=== PATIENT | female | born 1960 | race Caucasian/White ===

== ENCOUNTER 2017-01-12 15:33 | Emergency (ER) | payer BC ==
[2017-01-12 15:46] VITALS: BP 157/100
[2017-01-12] MEDS ORDERED: Glucagon,Human Recombinant 1 MG Vial IVPUSH ONE (16:14)
[2017-01-12] MEDS ORDERED: Sodium Chloride 0.9% 10 ML Syringe FLUSH PRN (16:14)
[2017-01-12] MEDS ORDERED: LORazepam 2 MG/ML MDV IVPUSH ONE (16:14)
--- NOTE | 2017-01-12 18:19 | EDM.PDOC ---
ED HPI GENERAL MEDICAL PROBLEM - General Chief Complaint: ENT Problem Stated Complaint: UNABLE TO SWALLOW Time Seen by Provider: 01/12/17 16:06 Source of Information: Reports: Patient, RN Notes Reviewed - History of Present Illness INITIAL COMMENTS - FREE TEXT/NARRATIVE: 56-year-old female comes in with sensation of food bolus stuck in her esophagus. She has had difficulty of this nature off and on for about 5 years. She states she has required "stretching" or dilatation of her esophagus on numerous occasions in the past. Venous and which was some sausage at around noon today when she felt like food became impacted. Initially she was not able to swallow water. She has been swallowing secretions. at the time of my initial exam she did not think that she could drink water. Mild discomfort upper mid chest worse with swallowing. she's not been coughing and no shortness of breath - Related Data Allergies Allergy/AdvReac Type Severity Reaction Status Date / Time No Known Allergies Allergy Verified 01/12/17 15:45 Home Meds: Home Meds Esomeprazole Magnesium [Nexium] 40 mg PO DAILY 06/14/14 [History] Levothyroxine Sodium [Synthroid] 112 mcg PO DAILY 06/14/14 [History] Crestor. 0.5 tab PO DAILY 01/12/17 [History] Past Medical History Gastrointestinal History: Reports: GERD, Other (See Below) Endocrine/Metabolic History: Reports: Hypothyroidism - Past Surgical History Other HEENT Surgeries/Procedures: Esophagus stricture GI Surgical History: Reports: Esophageal Dilatation Social & Family History - Tobacco Use Smoking Status *Q: Never Smoker Second Hand Smoke Exposure: No - Caffeine Use Caffeine Use: Reports: Coffee - Alcohol Use Days Per Week of Alcohol Use: 0 Number of Drinks Per Day: 0 Total Drinks Per Week: 0 - Recreational Drug Use Recreational Drug Use: No Drug Use in Last 12 Months: No - Living Situation & Occupation Living situation: Reports: Occupation: Employed ED ROS ENT - Review of Systems Review Of Systems: See Below Constitutional: Denies: Fever, Chills, Diaphoresis HEENT: Denies: Throat Pain Respiratory: Reports: Other (she does have some discomfort upper mid chest primarily with swallowing). Denies: Shortness of Breath, Pleuritic Chest Pain Cardiovascular: Reports: Chest Pain (upper mid chest pain with swallowing). Denies: Lightheadedness GI/Abdominal: Reports: Vomiting (it sounds like she did vomit up some food material shortly after this happened). Denies: Abdominal Pain Musculoskeletal: Denies: Neck Pain, Shoulder Pain, Back Pain Skin: Reports: No Symptoms Neurological: Denies: Dizziness, Numbness, Tingling, Trouble Speaking, Weakness ED EXAM, ENT - Physical Exam Exam: See Below General Appearance: Alert, No Apparent Distress Eye Exam: Bilateral Eye: PERRL Mouth/Throat: Normal Inspection Head: Atraumatic. No: Facial Swelling Neck: Supple, Non-Tender, Full Range of Motion. No: Lymphadenopathy (L), Lymphadenopathy (R) Respiratory/Chest: No Respiratory Distress, Lungs Clear, Normal Breath Sounds, No Accessory Muscle Use Cardiovascular: Regular Rate, Rhythm GI/Abdominal: Soft, Non-Tender Extremities: Normal Inspection, Normal Range of Motion Skin: Warm, Dry, Normal Color Course - Vital Signs Last Recorded V/S: Last Vital Signs Temp 97.6 F 01/12/17 15:42 Pulse 67 01/12/17 15:42 Resp 18 01/12/17 15:42 BP 157/100 H 01/12/17 15:42 Pulse Ox 98 01/12/17 15:42 - Orders/Labs/Meds Orders: Active Orders 24 hr Category Date Time Status Peripheral IV Care [RC] . DIRECTED Care 01/12/17 16:14 Active Peripheral IV Insertion Adult [OM.PC] Stat Oth 01/12/17 16:14 Ordered Labs: Laboratory Tests 01/12/17 01/12/17 Range/Units 16:25 16:25 WBC 7.17 (3.98-10.04) K/mm3 RBC 4.23 (3.98-5.22) M/mm3 Hgb 12.7 (11.2-15.7) gm/L Hct 38.9 (34.1-44.9) % MCV 92.0 (79.4-94.8) fl MCH 30.0 (25.6-32.2) pg MCHC 32.6 (32.2-35.5) g/dl RDW Std Deviation 44.5 (36.4-46.3) fL Plt Count 214 (182-369) K/mm3 MPV 9.7 (9.4-12.3) fl Neut % (Auto) 77.3 H (34.0-71.1) % Lymph % (Auto) 14.1 L (19.3-51.7) % [place] % (Auto) 7.5 (4.7-12.5) % Eos % (Auto) 0.8 (0.7-5.8) Baso % (Auto) 0.0 L (0.1-1.2) % Neut # (Auto) 5.54 (1.56-6.13) K/mm3 Lymph # (Auto) 1.01 L (1.18-3.74) K/mm3 [place] # (Auto) 0.54 H (0.24-0.36) K/mm3 Eos # (Auto) 0.06 (0.04-0.36) K/mm3 Baso # (Auto) 0.00 L (0.01-0.08) K/mm3 Sodium 134 L (136-145) mEq/L Potassium 3.7 (3.5-5.1) mEq/L Chloride 100 (98-107) mEq/L Carbon Dioxide 26 (21-32) mEq/L Anion Gap 11.7 (5-15) BUN 8 (7-18) mg/dL Creatinine 0.8 (0.55-1.02) mg/dL Est Cr Clr Drug Dosing 66.19 mL/min Estimated GFR (MDRD) > 60 (>60) mL/min BUN/Creatinine Ratio 10.0 L (14-18) Glucose 111 H (74-106) mg/dL Calcium 9.7 (8.5-10.1) mg/dL Total Bilirubin 0.4 (0.2-1.0) mg/dL AST 24 (15-37) U/L ALT 27 (14-59) U/L Alkaline Phosphatase 57 (46-116) U/L Total Protein 7.8 (6.4-8.2) g/dl Albumin 3.8 (3.4-5.0) g/dl Globulin 4.0 gm/dL Albumin/Globulin Ratio 1.0 (1-2) Meds: Medications Discontinued Medications Generic Name Dose Route Start Last Admin Trade Name Freq PRN Reason Stop Dose Admin Glucagon 1 mg 01/12/17 16:14 01/12/17 16:28 Glucagen IVPUSH 01/12/17 16:15 1 mg ONETIME ONE Administration Lorazepam 0.5 mg 01/12/17 16:14 01/12/17 16:29 Ativan IVPUSH 01/12/17 16:15 0.5 mg ONETIME ONE Administration Sodium Chloride 10 ml 01/12/17 16:14 01/12/17 16:33 Saline Flush FLUSH 10 ml ASDIRECTED PRN Administration Keep Vein Open - Re-Assessments/Exams Free Text/Narrative Re-Assessment/Exam: 01/12/17 20:30 patient was treated initially with glucagon 1 mg IV, Ativan 0.5 mg IV. After a period of time she was given water to drink and was able to swallow the water down with mild discomfort upper mid chest with swallowing. However the water did go down fairly easily and at no time did she show any indication for wanting or needing to vomit. this was followed up with some Coke. She did not have any major difficulty with that. I have discussed with her that her current discomfort swallowing is not unusual after having had food bolus impaction in the esophagus. We should give this 24 hours or so to see if her discomfort goes away. If Not she can then follow-up with her regular provider and have her esophagus "dilated" electively as she is had done in the past. Discharge instructions as documented Departure - Departure Time of Disposition: 18:15 Disposition: Home, Self-Care 01 Condition: Fair Clinical Impression: Food impaction of esophagus Qualifiers: Encounter type: initial encounter Qualified Code(s): T18.128A - Food in esophagus causing other injury, initial encounter - Discharge Information Referrals: Glenna Jefferson, [employer]CH[employer]ICAL OFFICER [Primary Care Provider] - Forms: ED Department Discharge Additional Instructions: clear liquids only this evening, then clear liquids and soft diet tomorrow as tolerated, If and when you do try more solid food be sure to cut up and chew your food very carefully, call Dr. Morris office tomorrow if still having difficulty swallowing, Plan to see Dr Laura as soon as possible after you get back home from [place], return to ED as needed if complete obstruction were to occur at any time - My Orders Last 24 Hours: My Active Orders 01/12/17 16:14 Peripheral IV Care [RC] . DIRECTED Peripheral IV Insertion Adult [OM.PC] Stat - Assessment/Plan Last 24 Hours: My Active Orders 01/12/17 16:14 Peripheral IV Care [RC] . DIRECTED Peripheral IV Insertion Adult [OM.PC] Stat
== END 2017-01-12 18:38 | disposition home or self-care (01) ==
LOC: JD.ED 15:33
DX: T18.128A Food in esophagus causing other injury, initial encounter (principal); K21.9 Gastro-esophageal reflux disease without esophagitis; E03.9 Hypothyroidism, unspecified; Z79.899 Other long term (current) drug therapy; Z98.890 Other specified postprocedural states; X58.XXXA Exposure to other specified factors, initial encounter
CPT/HCPCS: 36415; 80053; 85025; 96374; 96375; 99284; J1610; J2060; J7050

== ENCOUNTER 2017-03-03 12:33 | Emergency (ER) | payer BC | END 2017-03-03 12:40 | disposition left against medical advice (07) | LOC: JD.ED 12:33 | DX: Z53.21 Procedure and treatment not carried out due to patient leaving prior to being seen by health care provider (principal) ==

== ENCOUNTER 2018-04-13 13:50 | Emergency (ER) | payer BC ==
[2018-04-13 14:41] VITALS: BP 125/68
--- NOTE | 2018-04-13 15:25 | EDM.PDOC ---
ED HPI GENERAL MEDICAL PROBLEM - General Chief Complaint: Respiratory Problem Stated Complaint: DIFFICULTY SWALLOWING Time Seen by Provider: 04/13/18 15:08 Source of Information: Reports: Patient, RN Notes Reviewed History Limitations: Reports: No Limitations - History of Present Illness INITIAL COMMENTS - FREE TEXT/NARRATIVE: Patient is a 58 year old female who presents to the ED for the evaluation of difficulty swallowing any type of food. This has been progressing for the last 3 days. She has been able to get food down, but sometimes it takes a while and she is having to vomit up some of the food to get it out of her esophagus. She does not have a food bolus stuck in her throat today. She has had a history of this for around 5 years now with resultant dilatiation of her esophagus by Dr. Laura. She is not in any respiratory distress right now. She further denies any fever/chills, nausea/vomiting/diarrhea, or abdominal pain. Her normal primary care provider is Shell Jefferson. She does have a history of GERD and does take Nexium daily. She does note that she tried to get in with Dr. Laura for management, but was told that he is out of the office until Tuesday, and she is worried that food may become stuck and she will have more difficulty this weekend. - Related Data Allergies Allergy/AdvReac Type Severity Reaction Status Date / Time No Known Allergies Allergy Verified 04/13/18 14:41 Home Meds: Home Meds Esomeprazole Magnesium [Nexium] 40 mg PO DAILY 06/14/14 [History] Levothyroxine Sodium [Synthroid] 112 mcg PO DAILY 06/14/14 [History] Crestor. 0 tab PO ASDIRECTED 01/12/17 [History] Lisinopril [Zestril] 0 mg PO DAILY 04/13/18 [History] Past Medical History Gastrointestinal History: Reports: GERD, Other (See Below) Endocrine/Metabolic History: Reports: Hypothyroidism - Past Surgical History Other HEENT Surgeries/Procedures: Esophagus stricture GI Surgical History: Reports: Esophageal Dilatation Social & Family History - Caffeine Use Caffeine Use: Reports: Coffee - Living Situation & Occupation Living situation: Reports: Occupation: Employed ED ROS GENERAL - Review of Systems Review Of Systems: See Below Constitutional: Reports: No Symptoms HEENT: Reports: No Symptoms Respiratory: Reports: No Symptoms Cardiovascular: Reports: No Symptoms Endocrine: Reports: No Symptoms GI/Abdominal: Reports: Difficulty Swallowing. Denies: Diarrhea, Nausea, Vomiting : Reports: No Symptoms Musculoskeletal: Reports: No Symptoms Skin: Reports: No Symptoms Neurological: Reports: No Symptoms Psychiatric: Reports: No Symptoms Hematologic/Lymphatic: Reports: No Symptoms Immunologic: Reports: No Symptoms ED EXAM, GENERAL - Physical Exam Exam: See Below Exam Limited By: No Limitations General Appearance: Alert, WD/WN, No Apparent Distress Eye Exam: Bilateral Eye: Normal Inspection Ears: Normal External Exam Nose: Normal Inspection Throat/Mouth: Normal Inspection, Normal Oropharynx, No Airway Compromise Head: Atraumatic, Normocephalic Neck: Normal Inspection, Supple, Non-Tender, Full Range of Motion Respiratory/Chest: No Respiratory Distress, Lungs Clear, Normal Breath Sounds, No Accessory Muscle Use, Chest Non-Tender Cardiovascular: Normal Peripheral Pulses, Regular Rate, Rhythm, No Murmur GI/Abdominal: Normal Bowel Sounds, Soft, Non-Tender, No Distention, No Mass Extremities: Normal Inspection, Normal Range of Motion, Normal Capillary Refill Neurological: Alert, Oriented, Normal Cognition, No Motor/Sensory Deficits Psychiatric: Normal Affect, Normal Mood Skin Exam: Warm, Dry, Intact, Normal Color, No Rash Lymphatic: No Adenopathy Course - Vital Signs Last Recorded V/S: Last Vital Signs Temp 97.9 F 04/13/18 14:38 Pulse 67 04/13/18 14:38 Resp 18 04/13/18 14:38 BP 125/68 04/13/18 14:38 Pulse Ox 98 04/13/18 14:38 - Re-Assessments/Exams Free Text/Narrative Re-Assessment/Exam: 04/13/18 15:38 Pt presents to the ED for the evaluation of difficulty swallowing. Due to the nature of her symptoms and the progression over the last 3 days, Dr. Palomares was called for possible dilatation. It was her recommendation that the patient follow strict clear liquid diet tonight and call Dr. Laura's office in the morning as he is supposed to be taking call at 11AM. The patient understands this and will comply with recommendations. Departure - Departure Time of Disposition: 15:41 Disposition: Home, Self-Care 01 Condition: Fair Clinical Impression: Difficulty swallowing Qualifiers: Dysphagia type: unspecified Qualified Code(s): R13.10 - Dysphagia, unspecified - Discharge Information *PRESCRIPTION DRUG MONITORING PROGRAM REVIEWED*: No *COPY OF PRESCRIPTION DRUG MONITORING REPORT IN PATIENT RETA: No Instructions: Dysphagia Referrals: Shell Jefferson MD [Primary Care Provider] - Forms: ED Department Discharge Additional Instructions: You have been evaluated in the ED for difficulty swallowing. It was general surgery's (Dr. Palomares's) recommendation today that you should follow a clear liquid diet tonight and re-contact Dr. Laura's office tomorrow for possible dilatation or further recommendations. Please return to ED if your symptoms should change or worsen.
== END 2018-04-13 16:08 | disposition home or self-care (01) ==
LOC: JD.ED 13:50
DX: R13.10 Dysphagia, unspecified (principal); K21.9 Gastro-esophageal reflux disease without esophagitis; E03.9 Hypothyroidism, unspecified; Z79.899 Other long term (current) drug therapy
CPT/HCPCS: 99284